=== PATIENT | female | born 1965 | race African-American/Black ===

== ENCOUNTER 2017-06-14 15:16 | Inpatient (IN) | payer OTHER ==
[2017-06-14 17:09] VITALS: BMI 20.2
--- NOTE | 2017-06-14 17:59 | HP ---
COWS - Scale Resting Pulse: 0= MS 80 or Below Sweatin= Chills/Flushing Restless Observation: 3= Extraneous Movement Pupil Size: 0= Normal to Room Light Bone or Joint Aches: 2= Severe Diffuse Aches Runny Nose/ Eye Tearin= Runny Nose/Eyes GI Upset > 30mins: 3= Vomiting/Diarrhea Tremor Observation: 2= Slight Tremor Visible Yawning Observation: 0= None Anxiety or Irritability: 1=Feels Anxious/Irritable Goose Flesh Skin: 0=Smooth Skin COWS Score: 14 CIWA Score - CIWA Score Nausea/Vomitin Muscle Tremors: 4-Moderate,w/Arms Extend Anxiety: 3 Agitation: 3 Paroxysmal Sweats: 1-Minimal Palms Moist Orientation: 1-Uncertain about Date Tacttile Disturbances: 0-None Auditory Disturbances: 0-None Visual Disturbances: 0-None Headache: 0-None Present CIWA-Ar Total Score: 14 Admission [facility] - HPI Chief Complaint: withdrawal sx Allergies/Adverse Reactions: Allergies Allergy/AdvReac Type Severity Reaction Status Date / Time No Known Allergies Allergy Verified 06/14/17 17:14 History of Present Illness: 52 years old female with long history of opiate alcohol nicotine dependence has head trauma seizure copd and depression is admitted to detox Exam Limitations: No Limitations - Ebola screening Have you traveled outside of the country in the last 21 days: No Have you had contact with anyone from an Ebola affected area: No Have you been sick,other than usual withdrawal symptoms: No Do you have a fever: No - Review of Systems Constitutional: Loss of Appetite, Changes in sleep, Unintentional Wgt. Loss EENT: reports: No Symptoms Reported Respiratory: reports: No Symptoms reported Cardiac: reports: No Symptoms Reported GI: reports: Nausea, Poor Appetite, Poor Fluid Intake, Vomiting, Indigestion, Abdominal cramping : reports: No Symptoms Reported Musculoskeletal: reports: Back Pain, Joint Pain, Muscle Pain, Neck Pain Integumentary: reports: No Symptoms Reported Neuro: reports: Seizure (head trauma related since ), Tremors Endocrine: reports: No Symptoms Reported Hematology: reports: No Symptoms Reported Psychiatric: reports: Judgement Intact, Anxious, Depressed Other Systems: Reviewed and Negative Patient History - Patient Medical History Hx Anemia: No Hx Asthma: No Hx Chronic Obstructive Pulmonary Disease (COPD): Yes Hx Cancer: No Hx Cardiac Disorders: No Hx Congestive Heart Failure: No Hx Hypertension: No Hx Hypercholesterolemia: No Hx Pacemaker: No HX Cerebrovascular Accident: No Hx Seizures: Yes (seizure disorder. last 6 months ago.) Hx Dementia: No Hx Diabetes: No Hx Gastrointestinal Disorders: No Hx Liver Disease: No Hx Genitourinary Disorders: No Hx Sexually Transmitted Disorders: No Hx Renal Disease (ESRD): No Hx Thyroid Disease: No Hx Human Immunodeficiency Virus (HIV): No Hx Hepatitis C: No Hx Depression: Yes Hx Suicide Attempt: No Hx Bipolar Disorder: No Hx Schizophrenia: No - Patient Surgical History Past Surgical History: Yes Hx Neurologic Surgery: No Hx Cataract Extraction: No Hx Cardiac Surgery: No Hx Lung Surgery: No Hx Breast Surgery: No Hx Breast Biopsy: No Hx Abdominal Surgery: No Hx Appendectomy: No Hx Cholecystectomy: Yes (in ) Hx Genitourinary Surgery: No Hx Section: No Hx Orthopedic Surgery: No Hx Hysterectomy: No Anesthesia Reaction: No - PPD History Previous Implant?: Yes Documented Results: Negative w/o proof Implanted On Prior R Admission?: No PPD to be Administered?: Yes - Reproductive History Patient is a Female of Child Bearing Age (11 -55 yrs old): Yes Last Menstrual Period: 06/14/13 Patient : No - Smoking Cessation Smoking history: Current every day smoker Have you smoked in the past 12 months: Yes Aproximately how many cigarettes per day: 20 Cigars Per Day: 0 Hx Chewing Tobacco Use: No Initiated information on smoking cessation: Yes 'Breaking Loose' booklet given: 06/14/17 - Substance & Tx. History Hx Alcohol Use: Yes Hx Substance Use: Yes Substance Use Type: Alcohol, Cocaine, Heroin Hx Substance Use Treatment: Yes (11/2016 [place]) - Substances Abused Heroin Route: Inhalation Frequency: Daily Amount used: 20 BAGS Age of first use: 29 Date of Last Use: 06/14/17 Alcohol Route: Oral Frequency: Daily Amount used: 1 PINT GHAZAL Age of first use: 29 Date of Last Use: 06/13/17 Crack Route: Smoking Frequency: Daily Amount used: 3 BAGS Age of first use: 29 Date of Last Use: 06/13/17 Family Disease History - Family Disease History Family Disease History: [place]: Brother (), Other: Brother Admission Physical Exam [facility] - Vital Signs Vital Signs: Vital Signs - 24 hr 11/20/17 17:05 Temperature 98.0 F Pulse Rate 77 Respiratory 18 Rate Blood Pressure 100/60 - Physical General Appearance: Yes: Appropriately Dressed, Mild Distress, Thin, Tremorous, Irritable, Sweating, Anxious HEENTM: Yes: Hearing grossly Normal, Normal ENT Inspection, Normocephalic, Normal Voice Respiratory: Yes: Chest Non-Tender, No Respiratory Distress, No Accessory Muscle Use, Hyperresonant, Inspiration Neck: Yes: Supple, Trachea in good position Breast: Yes: Breasts Symetrical Cardiology: Yes: Regular Rhythm, Regular Rate, S1, S2 Abdominal: Yes: Non Tender, Soft, Increased Bowel Sounds Genitourinary: Yes: Within Normal Limits Back: Yes: Normal Inspection Musculoskeletal: Yes: full range of Motion, Gait Steady, Back pain, Muscle Pain Extremities: Yes: Normal Inspection, Normal Range of Motion, Non-Tender, Tremors Neurological: Yes: Alert, Motor Strength 5/5, Normal Response, Depressed Affect Integumentary: Yes: Warm Lymphatic: Yes: Within Normal Limits - Diagnostic (1) Alcohol dependence with uncomplicated withdrawal Current Visit: Yes Status: Acute (2) Opioid dependence with withdrawal Current Visit: Yes Status: Acute (3) Nicotine dependence Current Visit: Yes Status: Acute Qualifiers: Nicotine product type: cigarettes Substance use status: in withdrawal Qualified Code(s): F17.213 - Nicotine dependence, cigarettes, with withdrawal (4) Seizure Current Visit: Yes Status: Chronic (5) GERD (gastroesophageal reflux disease) Current Visit: Yes Status: Chronic Qualifiers: Esophagitis presence: without esophagitis Qualified Code(s): K21.9 - Gastro -esophageal reflux disease without esophagitis (6) Weight loss Current Visit: Yes Status: Acute (7) COPD (chronic obstructive pulmonary disease) Current Visit: Yes Status: Chronic Qualifiers: COPD type: emphysema Emphysema type: panlobular Qualified Code(s): J43.1 - Panlobular emphysema (8) Depression (emotion) Current Visit: Yes Status: Suspected Qualifiers: Depression Type: dysthymia Qualified Code(s): F34.1 - Dysthymic disorder Cleared for Admission [facility] - Detox or Rehab S Level of Care: Medically Managed Detox Regimen/Protocol: Methadone/Librium S Breath Alcohol Content Breath Alcohol Content: 0 Urine Pregancy Test - Result Urine Test Results: Negative- NO Line Present Urine Drug Screen - Results Drug Screen Negative: No Urine Drug Screen Results: OUSMANE-Cocaine, OPI-Opiates, BAR-Barbiturates
[2017-06-14] MEDS ORDERED: MAGNESIUM HYDROX 2400MG/30ML ORAL SUSPENSION 30 ML CUP PO PRN (18:05)
[2017-06-14] MEDS ORDERED: MAG HYDROX/AL HYDROX/SIMETH 30 ML UNIT-DOSE CUP PO PRN (18:05)
[2017-06-14] MEDS ORDERED: LOPERAMIDE HCL 2 MG CAPSULE PO PRN (18:05)
[2017-06-14] MEDS ORDERED: MENTHOL/PHENOL 1 EACH UD MM PRN (18:05)
[2017-06-14] MEDS ORDERED: MAGNESIUM CITRATE 300 ML BOTTLE PO PRN (18:05)
[2017-06-14] MEDS ORDERED: METHADONE HCL 10 MG TABLET (FOR DETOX USE ONLY) PO ONE ×2 (18:05→23:00)
[2017-06-14] MEDS ORDERED: guaiFENesin/D-METHORPHAN HB 10 ML UNIT-DOSE CUPS PO PRN (18:05)
[2017-06-14] MEDS ORDERED: NICOTINE POLACRILEX 4 MG GUM BC PRN (18:05)
[2017-06-14] MEDS ORDERED: P-EPHED 60MG/TRIPROLIDI 2.5MG TABLET PO PRN (18:05)
[2017-06-14] MEDS ORDERED: PHENobarbital 30 MG TABLET PO SCH ×2 (18:08→22:00)
[2017-06-14] MEDS ORDERED: PHENYTOIN NA EXTENDED 100 MG CAPSULE (FP) PO SCH (22:00)
[2017-06-14] MEDS: BUDESONIDE/FORMETEROL FUMARATE 80/4.5 mcg INHALER IH SCH (22:13)
[2017-06-14] MEDS: chlordiazePOXIDE HCL 25 MG CAPSULE PO SCH (22:13)
[2017-06-14] MEDS: PHENobarbital 30 MG TABLET PO SCH (22:15)
[2017-06-14] MEDS: THIAMINE HCL 100 MG TABLET (FP) PO SCH (22:15)
[2017-06-14] MEDS: PHENYTOIN NA EXTENDED 100 MG CAPSULE (FP) PO SCH (22:15)
[2017-06-14] MEDS: RANITIDINE HCL 150 MG TABLET (FP) PO SCH ×2 (22:16→22:58)
[2017-06-15 01:47] LABS: URINE APPEARANCE SLCLOUDY; URINE BILIRUBIN NEGATIVE (NEGATIVE); URINE BLOOD NEGATIVE (NEGATIVE); URINE COLOR YELLOW; URINE GLUCOSE (UA) NEGATIVE (NEGATIVE); URINE KETONE NEGATIVE (NEGATIVE); URINE NITRITE NEGATIVE (NEGATIVE); URINE PROTEIN NEGATIVE (NEGATIVE); URINE UROBILINOGEN NEGATIVE mg/dL (0.2-1.0)
[2017-06-15] MEDS: PHENobarbital 30 MG TABLET PO SCH ×3 (05:24→22:29)
[2017-06-15] MEDS: chlordiazePOXIDE HCL 25 MG CAPSULE PO SCH ×4 (05:24→22:29)
[2017-06-15 09:44] LABS: MCH 31.7 pg (25.7-33.7); MCHC 32.9 g/dl (32.0-36.0); MEAN CELL VOLUME 96.4 fl (80-96); MEAN PLT VOLUME 8.3 fl (7.5-11.1); RDW 13.8 % (11.6-15.6); WHITE BLOOD COUNT 4.2 K/mm3 (4.0-10.0)
--- NOTE | 2017-06-15 09:44 | PN ---
[facility] CIWA - CIWA Score Nausea/Vomitin-No Nausea/No Vomiting Muscle Tremors: 4-Moderate,w/Arms Extend Anxiety: 3 Agitation: 3 Paroxysmal Sweats: 3 Orientation: 0-Oriented Tacttile Disturbances: 0-None Auditory Disturbances: 0-None Visual Disturbances: 0-None Headache: 1-Very Mild CIWA-Ar Total Score: 14 [facility] COWS - Scale Resting Pulse: 0= DE 80 or Below Sweatin=Flushed/Facial Moisture Restless Observation: 1= Difficult to Sit Still Pupil Size: 0= Normal to Room Light Bone or Joint Aches: 2= Severe Diffuse Aches Runny Nose/ Eye Tearin= Runny Nose/Eyes GI Upset > 30mins: 1= Stomach Cramp Tremor Observation of Outstretched Hands: 2= Slight Tremor Visible Yawning Observation: 1= 1-2x During Session Anxiety or Irritability: 2=Irritable/Anxious Goose Flesh Skin: 0=Smooth Skin COWS Score: 13 S Progress Note (SOAP) Subjective: sweats shakes interrupted sleep agitation anxiety Objective: 06/15/17 09:44 Vital Signs Temperature 97.7 F 06/15/17 06:38 Pulse Rate 65 06/15/17 06:38 Respiratory Rate 16 06/15/17 06:38 Blood Pressure 102/54 06/15/17 06:38 O2 Sat by Pulse Oximetry (%) Laboratory Tests 06/14/17 22:30 Urine Color Yellow Urine Appearance Slcloudy Urine pH 5.0 Ur Specific [place] 1.027 Urine Protein Negative Urine Glucose (UA) Negative Urine Ketones Negative Urine Blood Negative Urine Nitrite Negative Urine Bilirubin Negative Urine Urobilinogen Negative labs pending aaox3 ambulating no acute distress Assessment: 06/15/17 09:44 withdrawal sx Plan: continue detox increase fluids labs pending
[2017-06-15] MEDS ORDERED: METHADONE HCL 10 MG TABLET (FOR DETOX USE ONLY) PO SCH (10:00)
[2017-06-15 10:15] LABS: URINE LEUK ESTERASE Negative (NEGATIVE)
[2017-06-15 10:36] LABS: ALBUMIN 2.9 g/dl (3.4-5.0); ALK PHOS 80 U/L (45-117); ANION GAP 6 (8-16); BILIRUBIN,TOTAL 0.3 mg/dL (0.2-1.0); CALCIUM 8.4 mg/dL (8.5-10.1); CO2 29 mmol/L (21-32); CREATININE 0.6 mg/dL (0.55-1.02); GLUCOSE,RANDOM 85 mg/dL (74-106); SGOT/AST 15 U/L (15-37); SGPT/ALT 30 U/L (12-78); TOT PROT 6.4 g/dl (6.4-8.2)
[2017-06-15] MEDS: PRENATAL VITAMINS W/ FOLIC ACID TABLET (FP) PO SCH (10:36)
[2017-06-15] MEDS: PHENYTOIN NA EXTENDED 100 MG CAPSULE (FP) PO SCH ×2 (10:36→22:29)
[2017-06-15] MEDS: RANITIDINE HCL 150 MG TABLET (FP) PO SCH ×2 (10:36→22:29)
[2017-06-15] MEDS: NICOTINE 21 MG/24 HOURS TOPICAL PATCH TD SCH (10:37)
[2017-06-15] MEDS: BUDESONIDE/FORMETEROL FUMARATE 80/4.5 mcg INHALER IH SCH ×2 (11:02→22:28)
[2017-06-15 11:17] LABS: HIV 1 & 2 AB NEGATIVE; HIV 1 AGp24 NEGATIVE
--- NOTE | 2017-06-15 12:41 | EKG ---
Test Reason : Blood Pressure : / mmHG Vent. Rate : 069 BPM Atrial Rate : 069 BPM P-R Int : 126 ms QRS Dur : 094 ms QT Int : 404 ms P-R-T Axes : 049 063 047 degrees QTc Int : 432 ms NORMAL SINUS RHYTHM BASELINE ARTIFACT NONSPECIFIC ST ABNORMALITY NO PREVIOUS ECGS AVAILABLE CLINICAL CORRELATION IS RECOMMENDED Confirmed by MELANY VALENCIA MD ([id number]) on 06/15/2017 12:40:38 PM Referred By: Confirmed By:MELANY VALENCIA MD
[2017-06-15] MEDS: chlordiazePOXIDE HCL 25 MG CAPSULE PO PRN (12:54)
[2017-06-15] MEDS: ACETAMINOPHEN 325 MG TABLET (FP) PO PRN (12:54)
[2017-06-15] MEDS ORDERED: COLLOIDAL OATMEAL 1 BAR EACH TP PRN (13:31)
--- NOTE | 2017-06-15 14:33 | CONSULT ---
[facility] Psychiatric Consult - Data Date of interview: 06/15/17 Admission source: [facility] Identifying data: First admission to [facility] for this 52 y/o AA female seeking detox treatment on for alcohol,cocaine and heroin dependence.Patient is ,a mother of one,homeless,unemployed and supported on SSI/Social Security benefits. Substance Abuse History: Confirmed by patient in this interview. Smoking Cessation. Smoking history: Current every day smoker. Have you smoked in the past 12 months: Yes. Aproximately how many cigarettes per day: 20. Cigars Per Day: 0. Hx Chewing Tobacco Use: No. Initiated information on smoking cessation : Yes. 'Breaking Loose' booklet given: 06/14/17. - Substance & Tx. History. Hx Alcohol Use: Yes. Hx Substance Use: Yes. Substance Use Type: Alcohol, Cocaine, Heroin. Hx Substance Use Treatment: Yes (11/2016 [facility]). - Substances Abused. Heroin. Route: Inhalation. Frequency: Daily. Amount used: 20 BAGS. Age of first use: 29. Date of Last Use: 06/14/17. Alcohol. Route: Oral. Frequency: Daily. Amount used: 1 PINT GHAZAL. Age of first use : 29. Date of Last Use: 06/13/17. Crack. Route: Smoking. Frequency: Daily. Amount used: 3 BAGS. Age of first use: 29. Date of Last Use: 06/13/17 Medical History: COPD,seizure disorder and a history of cholecystectomy. Psychiatric History: Patient admits to a remote history of psychiatric hospitalizations.Diagnosed with Bipolar Disorder as per self-report.Used to be on Prozac,depakote,xanax and seroquel (doses not recalled).No OPD care for more than seven months (self-report).Medications not taken for same period of time.Ms Miguel states that she used to be followed at the [facility] OPD clinic.She denies history of suicide attempts. Physical/Sexual Abuse/Trauma History: Patient denies. Additional Comment: Urine Drug Screen Results: OUSMANE-Cocaine, OPI-Opiates, BAR- Barbiturates.Noted. Mental Status Exam - Mental Status Exam Alert and Oriented to: Time, Place, Person Cognitive Function: Good Patient Appearance: Well Groomed Mood: Euthymic Affect: Appropriate, Normal Range Patient Behavior: Cooperative Speech Pattern: Clear Voice Loudness: Normal Thought Process: Goal Oriented Thought Disorder: Not Present Hallucinations: Denies Suicidal Ideation: Denies Homicidal Ideation: Denies Insight/Judgement: Poor Sleep: Poorly, Difficulty falling asleep Appetite: Good Muscle strength/Tone: Normal Gait/Station: Normal Psychiatric Findings - Problem List ([place] 1, 2,3) (1) Alcohol dependence with uncomplicated withdrawal Current Visit: Yes Status: Acute (2) Opioid dependence with withdrawal Current Visit: Yes Status: Acute (3) Nicotine dependence Current Visit: Yes Status: Acute Qualifiers: Nicotine product type: cigarettes Substance use status: uncomplicated Qualified Code(s): F17.210 - Nicotine dependence, cigarettes, uncomplicated (4) Cocaine dependence Current Visit: Yes Status: Acute (5) Substance induced mood disorder Current Visit: Yes Status: Acute (6) Insomnia Current Visit: Yes Status: Acute - Initial Treatment Plan Initial Treatment Plan: Psychoeducation.Detoxification.Ambien 10 mg po hs prn.Patient is made aware of potential for parasomnias.Agrees with this careplan.Observation.Patient is instructed to contact her OPD care provider for follow-up.Review of pharmacy claims : not informative.
[2017-06-15] MEDS ORDERED: ZOLPIDEM TARTRATE 5 MG TABLET PO PRN (14:47)
[2017-06-15 15:22] LABS: PLATELET COUNT 183 K/MM3 (134-434)
[2017-06-15] MEDS: AMMONIUM LACTATE 12% LOTION 225 GM BOTTLE TP PRN ×2 (19:41→22:29)
[2017-06-15] MEDS: THIAMINE HCL 100 MG TABLET (FP) PO SCH (22:28)
[2017-06-15] MEDS: ZOLPIDEM TARTRATE 10 MG TABLET (PARK CARE ONLY) PO PRN (22:29)
[2017-06-16] MEDS: chlordiazePOXIDE HCL 25 MG CAPSULE PO PRN (02:39)
[2017-06-16] MEDS: ACETAMINOPHEN 325 MG TABLET (FP) PO PRN (02:39)
[2017-06-16] MEDS: PHENobarbital 30 MG TABLET PO SCH ×3 (05:45→22:09)
[2017-06-16] MEDS: chlordiazePOXIDE HCL 25 MG CAPSULE PO SCH ×3 (05:45→17:51)
--- NOTE | 2017-06-16 09:47 | PN ---
[facility] CIWA - CIWA Score Nausea/Vomitin Muscle Tremors: 3 Anxiety: 3 Agitation: 3 Paroxysmal Sweats: 3 Orientation: 0-Oriented Tacttile Disturbances: 0-None Auditory Disturbances: 0-None Visual Disturbances: 0-None Headache: 0-None Present CIWA-Ar Total Score: 15 [facility] COWS - Scale Resting Pulse: 1= DE 81-100 Sweatin= Chills/Flushing Restless Observation: 1= Difficult to Sit Still Pupil Size: 0= Normal to Room Light Bone or Joint Aches: 1= Mild Discomfort Runny Nose/ Eye Tearin= Nasal Congestion GI Upset > 30mins: 2= Nausea/Diarrhea Tremor Observation of Outstretched Hands: 2= Slight Tremor Visible Yawning Observation: 1= 1-2x During Session Anxiety or Irritability: 2=Irritable/Anxious Goose Flesh Skin: 3=Piloerection COWS Score: 15 [facility] Progress Note (SOAP) Subjective: nausea, sweats, interrupted sleep, anxiety, tremors Objective: 06/16/17 09:46 Vital Signs - 8 hr 06/16/17 06/16/17 03:30 06:35 Temperature 98.1 F Pulse Rate 64 Respiratory 18 16 Rate Blood Pressure 96/61 Laboratory Tests 06/14/17 06/14/17 06/15/17 07:00 22:30 07:00 WBC RBC Hgb Hct MCV MCH MCHC RDW Plt Count MPV Sodium Potassium Chloride Carbon Dioxide Anion Gap BUN Creatinine Creat Clearance w eGFR Random Glucose Calcium Total Bilirubin AST ALT Alkaline Phosphatase Total Protein Albumin Urine Color Yellow Urine Appearance Slcloudy Urine pH 5.0 Ur Specific [place] 1.027 Urine Protein Negative Urine Glucose (UA) Negative Urine Ketones Negative Urine Blood Negative Urine Nitrite Negative Urine Bilirubin Negative Urine Urobilinogen Negative Ur Leukocyte Esterase Negative RPR Titer Hepatitis C Antibody <0.1 HIV 1&2 Antibody Screen Negative HIV P24 Antigen Negative 06/15/17 06/15/17 06/15/17 07:00 07:00 07:00 WBC 4.2 RBC 4.06 Hgb 12.9 Hct 39.2 MCV 96.4 H MCH 31.7 MCHC 32.9 RDW 13.8 Plt Count 183 MPV 8.3 Sodium 142 Potassium 4.2 Chloride 107 Carbon Dioxide 29 Anion Gap 6 L BUN 16 Creatinine 0.6 Creat Clearance w eGFR > 60 Random Glucose 85 Calcium 8.4 L Total Bilirubin 0.3 AST 15 ALT 30 Alkaline Phosphatase 80 Total Protein 6.4 Albumin 2.9 L Urine Color Urine Appearance Urine pH Ur Specific [place] Urine Protein Urine Glucose (UA) Urine Ketones Urine Blood Urine Nitrite Urine Bilirubin Urine Urobilinogen Ur Leukocyte Esterase RPR Titer Nonreactive Hepatitis C Antibody HIV 1&2 Antibody Screen HIV P24 Antigen Assessment: 06/16/17 09:46 withdrawal sx cont detox, fluids, low al - malnutirtion 2/2 substance use ensure plus
[2017-06-16] MEDS: PHENYTOIN NA EXTENDED 100 MG CAPSULE (FP) PO SCH ×2 (10:19→22:09)
[2017-06-16] MEDS: METHADONE HCL 5 MG TABLET (FOR DETOX USE ONLY) PO SCH (10:19)
[2017-06-16] MEDS: PRENATAL VITAMINS W/ FOLIC ACID TABLET (FP) PO SCH (10:19)
[2017-06-16] MEDS: BUDESONIDE/FORMETEROL FUMARATE 80/4.5 mcg INHALER IH SCH ×2 (10:20→22:08)
[2017-06-16] MEDS: RANITIDINE HCL 150 MG TABLET (FP) PO SCH ×2 (10:20→22:08)
[2017-06-16] MEDS: NICOTINE 21 MG/24 HOURS TOPICAL PATCH TD SCH (10:21)
[2017-06-16] MEDS: AMMONIUM LACTATE 12% LOTION 225 GM BOTTLE TP PRN (12:56)
--- NOTE | 2017-06-16 17:15 | PN ---
Psychiatric Progress Note Vital Signs: Vital Signs Period Temp Pulse Resp BP Sys/Catherine Pulse Ox Last 24 Hr 97.2 F-100.2 F 60-82 16-18 91-146/53-75 Date of Session: 06/16/17 Chief Complaint:: " I would like to get back on my medications." HPI: Asked to re-evaluate this patient due to behavioral dyscontrol,frequent angry outbursts and vague threats of suicide (if denial of her request for admission to the rehabilitation unit after detoxification treatment).According to the nursing staff,the patient has been oblivious to verbal redirections, manipulative,ignorant of boundaries,argumentative and unpredictable.Ms Beck has ,apparently,been pressuring nursing staff for renewal of prozac and seroquel ( not taken for now seven months,according to own account). ROS: Patient is calm and friendly during interview.Alert and fully oriented.Cognition is fine.Ms Beck remains ambulatory,visible on the unit.Sociable.No specific somatic complaints. Current Medications: Active Medications Generic Name Dose Route Start Last Admin Trade Name Freq PRN Reason Stop Dose Admin Acetaminophen 650 mg 06/14/17 18:05 06/16/17 02:39 Tylenol - PO 650 mg Q4H PRN Administration FEVER OR PAIN Al Hydroxide/Mg Hydroxide 30 ml 06/14/17 18:05 Mylanta Oral Suspension - PO Q6H PRN DYSPEPSIA Budesonide/Formoterol Fumarate 2 puff 06/14/17 22:00 06/16/17 10:20 Symbicort 80/4.5mcg - IH 2 puff BID CAROLE Administration Chlordiazepoxide HCl 15 mg 06/16/17 23:00 Librium - PO 06/17/17 17:01 [id number] CAROLE Chlordiazepoxide HCl 10 mg 06/17/17 23:00 Librium - PO 06/18/17 17:01 [id number] CAROLE Chlordiazepoxide HCl 25 mg 06/14/17 18:05 06/16/17 02:39 Librium - PO 06/17/17 18:05 25 mg Q4H PRN Administration WITHDRAWAL(CONT SUBST) Colloidal Oatmeal 1 applic 06/15/17 13:31 06/15/17 14:15 Aveeno Soap - TP 1 appful DAILY PRN Administration HYGEINE Eucalyptus/Menthol/Phenol/Sorbitol 1 each 06/14/17 18:05 Cepastat Lozenge - MM Q4H PRN SORE THROAT Fluoxetine HCl 20 mg 06/17/17 10:00 Prozac - PO DAILY CAROLE Guaifenesin 10 ml 06/14/17 18:05 Robitussin Dm - PO Q6H PRN COUGH Lactic Acid 1 applic 06/15/17 14:59 06/16/17 12:56 Lac-Hydrin 12 TP 1 applic DAILY PRN Administration DRY SKIN Loperamide HCl 4 mg 06/14/17 18:05 Imodium - PO Q6H PRN DIARRHEA Magnesium Citrate 300 ml 06/14/17 18:05 Citroma - PO Q48H PRN CONSTIPATION Magnesium Hydroxide 30 ml 06/14/17 18:05 Milk Of Magnesia - PO DAILY PRN CONSTIPATION Methadone HCl 15 mg 06/16/17 10:00 06/16/17 10:19 Dolophine - PO 06/17/17 10:01 15 mg DAILY CAROLE Administration Methadone HCl 5 mg 06/19/17 06:00 Dolophine - PO 06/19/17 06:01 DAILY@0600 CAROLE Methadone HCl 10 mg 06/18/17 10:00 Dolophine - PO 06/18/17 10:01 DAILY CAROLE Nicotine 21 mg 06/15/17 10:00 06/16/17 10:21 Nicoderm Patch - TD Not Given DAILY [facility] Nicotine Polacrilex 4 mg 06/14/17 18:05 06/16/17 13:04 Nicorette Gum - BC 4 mg Q2H PRN Administration NICOTINE REPLACEMENT RX Phenobarbital 30 mg 06/14/17 22:00 06/16/17 14:49 Phenobarbital - PO 30 mg TID CAROLE Administration Phenytoin Sodium 200 mg 06/14/17 22:00 06/16/17 10:19 Dilantin - PO 200 mg BID CAROLE Administration Multivit/Folic Acid/Iron 1 tab 06/15/17 10:00 06/16/17 10:19 Vitamins (Sjr) - PO 1 tab DAILY CAROLE Administration Pseudoephedrine/Triprolidine 1 combo 06/14/17 18:05 Actifed - PO TID PRN NASAL CONGESTION Quetiapine Fumarate 100 mg 06/16/17 22:00 Seroquel - PO HS CAROLE Ranitidine HCl 150 mg 06/14/17 18:15 06/16/17 10:20 Zantac - PO 150 mg BID CAROLE Administration Thiamine HCl 100 mg 06/14/17 22:00 06/15/17 22:28 Vitamin B1 - PO 100 mg HS CAROLE Administration Zolpidem Tartrate 10 mg 06/15/17 22:00 06/15/17 22:29 Ambien - PO 06/18/17 21:59 10 mg HS PRN Administration INSOMNIA Medication(s) Change(s): Medications discussed with the patient.Education provided.Patient is informed of plan to gradually titrate her medications to optimal doses.Prozac will be started at 20 mg po daily (will address dysphoria + impulse control) + seroquel 100 mg po hs (steady titration to follow if no oversedation).Patient declines valproate.Side effects/benefits of both drugs are discussed with patient.She is agreable with this plan of care. Current Side Effect: No Lab tests ordered: No Lab tests reviewed: Yes Provider note:: Chart reviewed.Nursing notes are appreciated.Case presented by ISRAEL Morales.Patient is interviewed.At ease with this verse writer.Receptive to teaching and redirections.Patient appears eager to resume seroquel and fluoxetine.Confirmed total non-adherence for a duration in excess of seven months." I was busy running around,using drugs and not taking care of myself." Noted as hypertalkative,flirtitious,careless about boundaries (asking verse writer questions about his marital status) and manipulative.However,the patient does respond favorably to firm limit-setting.Apologetic to verse writer when made aware of the inappropriateness of her inquisitions.Ms Beck has consistently denied suicidal ideation,intent or plan.Denies homicidal thoughts or plan.Underlying character disorder (borderline/antisocial) co-morbid with bipolarity is strongly suspected.Patient agrees to get back on medications.Willing to pursue care.Ms Beck is NOT a danger to herself or others and she can safely be managed at [address] [place] [address].Stable mental status. Total face to face time:: 35 Mental Status Exam - Mental Status Exam Alert and Oriented to: Time, Place, Person Cognitive Function: Good Patient Appearance: Well Groomed Mood: Nervous, Hopeful Affect: Labile Patient Behavior: Inappropriate (at times ; asks indiscreet questions to interviwer), Cooperative Speech Pattern: Clear, Excessive (hypertalkative at intervals) Voice Loudness: Normal Thought Process: Goal Oriented Hallucinations: Denies Suicidal Ideation: Denies Homicidal Ideation: Denies Insight/Judgement: Poor Sleep: Poorly, Difficulty falling asleep Appetite: Good Muscle strength/Tone: Normal Gait/Station: Normal Psychiatric Treatment Plan - Problem List (3) Nicotine dependence Qualifiers: Nicotine product type: cigarettes Substance use status: uncomplicated Qualified Code(s): F17.210 - Nicotine dependence, cigarettes, uncomplicated (7) Bipolar disorder Comment: As per records and self-report.On medications.Non compliant with OPD care for months.
[2017-06-16] MEDS ORDERED: QUEtiapine FUMARATE 100 MG TABLET (FP) PO SCH (22:00)
[2017-06-16] MEDS: chlordiazePOXIDE 5 MG CAPSULE PO SCH (22:08)
[2017-06-16] MEDS: THIAMINE HCL 100 MG TABLET (FP) PO SCH (22:08)
[2017-06-16] MEDS: ZOLPIDEM TARTRATE 10 MG TABLET (PARK CARE ONLY) PO PRN (22:13)
[2017-06-17] MEDS: PHENobarbital 30 MG TABLET PO SCH ×2 (05:53→14:36)
[2017-06-17] MEDS: chlordiazePOXIDE 5 MG CAPSULE PO SCH ×2 (07:46→10:18)
[2017-06-17] MEDS ORDERED: FLUoxetine HCL 20 MG CAPSULE (FP) PO SCH (10:00)
[2017-06-17] MEDS: METHADONE HCL 5 MG TABLET (FOR DETOX USE ONLY) PO SCH (10:17)
[2017-06-17] MEDS: BUDESONIDE/FORMETEROL FUMARATE 80/4.5 mcg INHALER IH SCH (10:17)
[2017-06-17] MEDS: PRENATAL VITAMINS W/ FOLIC ACID TABLET (FP) PO SCH (10:18)
[2017-06-17] MEDS: PHENYTOIN NA EXTENDED 100 MG CAPSULE (FP) PO SCH (10:18)
[2017-06-17] MEDS: RANITIDINE HCL 150 MG TABLET (FP) PO SCH (10:18)
[2017-06-17] MEDS ORDERED: hydrOXYzine PAMOATE 25 MG CAPSULE (FP) PO PRN (10:25)
[2017-06-17] MEDS: NICOTINE 21 MG/24 HOURS TOPICAL PATCH TD SCH (11:07)
--- NOTE | 2017-06-17 12:55 | PN ---
[facility] Progress Note (SOAP) Subjective: irritable agitation anxiety sweats Objective: 06/17/17 12:55 Vital Signs Temperature 98.1 F 06/17/17 09:58 Pulse Rate 66 06/17/17 09:58 Respiratory Rate 18 06/17/17 09:58 Blood Pressure 121/76 06/17/17 09:58 O2 Sat by Pulse Oximetry (%) aaox3 ambulating no acute distress Assessment: 06/17/17 12:55 withdrawal sx Plan: continue detox increase fluids visitril prn
[2017-06-17 14:14] VITALS: BP 103/59; PULSE 78; TEMP 97.9
--- NOTE | 2017-06-17 14:18 | PN ---
[facility] Progress Note Note: pt had been very disruptive on the unit and antagonizing other patient. pt was asked to keep in mind that this is a detox unit and everyone is to follow unit rules. security was asked to come to the unit and assist with staff in re- directing this patient. patient agreed to focus on her detox and will leave other clients alone. however this afternoon pt began to antagonize patients on the unit, threaten to hurt other patient and became disruptive with cursing and becoming irrate. security was again called up to the unit. the entire staff and security tried to make pt reason but pt refused and agreed to leave and go home. Pt was escorted off the unit. pt left aaox3, ambulating and all belonging given to her.
--- NOTE | 2017-06-17 14:19 | DS ---
[facility] Detox Discharge Summary Admission Date: 06/14/17 Discharge Date: 06/17/17 - History Present History: Opioid Dependence - Physical Exam Results Vital Signs: Vital Signs Temperature 97.9 F 06/17/17 14:13 Pulse Rate 78 06/17/17 14:13 Respiratory Rate 18 06/17/17 14:13 Blood Pressure 103/59 06/17/17 14:13 O2 Sat by Pulse Oximetry (%) - Treatment Hospital Course: Detox Protocol Followed, Responded well, Discharged Condition Good - Medication Discharge Medications: Ambulatory Orders Fluoxetine HCl [Prozac -] 40 mg PO DAILY 06/14/17 Phenobarbital 32.4 mg PO TID 06/14/17 Phenytoin Na Extended [Dilantin -] 400 mg PO DAILY 06/14/17 Quetiapine Fumarate [Seroquel -] 300 mg PO BID 06/14/17 - Diagnosis (1) Alcohol dependence with uncomplicated withdrawal Current Visit: Yes Status: Chronic (2) Nicotine dependence Current Visit: Yes Status: Acute Qualifiers: Nicotine product type: cigarettes Substance use status: uncomplicated Qualified Code(s): F17.210 - Nicotine dependence, cigarettes, uncomplicated (3) Opioid dependence with withdrawal Current Visit: Yes Status: Chronic (4) Weight loss Current Visit: Yes Status: Acute (5) COPD (chronic obstructive pulmonary disease) Current Visit: Yes Status: Chronic Qualifiers: COPD type: emphysema Emphysema type: panlobular Qualified Code(s): J43.1 - Panlobular emphysema (6) GERD (gastroesophageal reflux disease) Current Visit: Yes Status: Chronic Qualifiers: Esophagitis presence: without esophagitis Qualified Code(s): K21.9 - Gastro -esophageal reflux disease without esophagitis (7) Seizure Current Visit: Yes Status: Chronic (8) Depression (emotion) Current Visit: Yes Status: Suspected Qualifiers: Depression Type: dysthymia Qualified Code(s): F34.1 - Dysthymic disorder - AMA Did Patient Leave Against Medical Advice: No (refused to comply with unit rules)
[2017-06-17] MEDS ORDERED: chlordiazePOXIDE HCL 10 MG CAPSULE PO SCH (23:00)
[2017-06-18] MEDS ORDERED: METHADONE HCL 10 MG TABLET (FOR DETOX USE ONLY) PO SCH (10:00)
[2017-06-19] MEDS ORDERED: METHADONE HCL 5 MG TABLET (FOR DETOX USE ONLY) PO SCH (06:00)
== END 2017-06-17 14:00 | disposition home or self-care (01) | DRG 897 ==
LOC: YASAS 15:16 → Y6N 19:03
PROVIDERS: ADMIT Internal Medicine; ATTEND Internal Medicine
PROC: HZ2ZZZZ Detoxification Services for Substance Abuse Treatment (ICD-10-PCS; principal; 2017-06-14)
DX: F11.20 Opioid dependence, uncomplicated (principal); F14.20 Cocaine dependence, uncomplicated; F17.210 Nicotine dependence, cigarettes, uncomplicated; F19.94 Other psychoactive substance use, unspecified with psychoactive substance-induced mood disorder; F31.9 Bipolar disorder, unspecified; F60.9 Personality disorder, unspecified; F34.1 Dysthymic disorder; G47.00 Insomnia, unspecified; R63.4 Abnormal weight loss; Z68.20 Body mass index [BMI] 20.0-20.9, adult; Z86.69 Personal history of other diseases of the nervous system and sense organs
CPT/HCPCS: 36415; 80053; 80185; 80307; 81003; 85027; 86593; 86803; 87389; 93005; 93010